=== PATIENT | female | born 1935 | race Caucasian/White ===

== ENCOUNTER 2017-01-11 12:50 | Inpatient (IN) | payer MEDICARE ==
--- NOTE | ~2017-01-11 | EKG ---
PATIENT: FINESSE SWANSON UNIT #: [id number] Ventricular Rate: 44 BPM Atrial Rate: 44 BPM P-R Interval: 184 ms QRS Duration: 74 ms Q-T Interval: 492 ms QTC Calculation(Bezet): 420 ms P [place]: 77 degrees Calculated R [place]: 33 degrees Calculated T [place]: 57 degrees Diagnosis Line: Marked sinus bradycardia Diagnosis Line: Abnormal ECG Diagnosis Line: No previous ECGs available Diagnosis Line: Confirmed by ASHLEY SGIALA MD ([id number]) on 01/11/2017 Diagnosis Line: 10:01:08 PM INTERPRETING MD: ZAKIYA JEAN-BAPTISTE
--- NOTE | ~2017-01-11 | CO ---
Unit #: [id number] #: [id number] Patient: FINESSE SWANSON [id number] [facility]. [place], [place] [address] [id number] I MR#: [id number] NAME: FINESSE SWANSON. ROOM: 322 Age: 81 Sex: F Admission Date: 01/11/2017 : 1935 Attending Physician: Shannon Louis M.D. Primary Care Physician: Martinez Chisholm M.D. CONSULTATION REPORT JOB NOTE: VERIFY MRN. REASON FOR CONSULTATION Bradycardia. HISTORY OF PRESENT ILLNESS This is an 81-year-old white female, who is known to Dr. Johns, who has a history of coronary artery disease where she underwent cardiac catheterization in 11/2016 where she was found to have 60% stenosis in the mid circumflex artery. She was seen in the office and echocardiogram was obtained, which found her to have normal left ventricular systolic function. A 24-hour Holter monitor was warranted and found the patient to have significant bradycardia. Her heart rate was as low as in the 40s. She also had runs of atrial fibrillation. She has been on anticoagulation with Pradaxa and rate controlled with metoprolol and amiodarone. She is admitted with a complaint of abdominal pain and black tarry stools. She had vomiting nonbloody emesis 2 days ago. She has been having lower extremity edema since she was started on amlodipine and was told to take an extra dose of furosemide. The edema has improved. She has experiences palpitations that mostly occurs during the night at 2:00 a.m. She has no palpitations during the day. Again, she is on Pradaxa, which was started 2 weeks ago. She came to the emergency room for evaluation, where she was found to be mildly anemic with a hemoglobin of 9.3. Her blood pressure has been stable. EKG found the patient to have a heart rate of 44 with marked sinus bradycardia. She has no complaints of chest pain. PAST MEDICAL HISTORY 1. 2D echocardiogram on 12/07/2016 shows an ejection fraction of 50% to 55% with [id number] mitral regurgitation and moderate tricuspid regurgitation. Right ventricular systolic pressure 41 mmHg. 2. Cardiac catheterization on 12/14/[address] Tillman at [facility] that reveals left main normal. LAD and right coronary artery normal. Circumflex artery with 60% stenosis in the AV groove with posterior marginal branch normal. Ejection fraction of 55%. 3. Hypertension. 4. Hyperlipidemia. 5. Paroxysmal atrial fibrillation, on anticoagulation with Pradaxa. 6. Diabetes mellitus, type 2. 7. Lung cancer, status post lobectomy. 8. COPD. 9. Active smoker. PAST SURGICAL HISTORY 1. Lobectomy. Unit #: [id number] #: [id number] Patient: FINESSE SWANSON 2. Left hip surgery. 3. Exploratory laparotomy. 4. Cataract extraction. 5. Hysterectomy. SOCIAL HISTORY The patient is retired. She smokes a pack of cigarettes daily. Denies illicit drug or alcohol use. FAMILY HISTORY Positive for heart disease in her father. Mother had a stroke. ALLERGIES Penicillin, sulfa, and statins. Statins causes leg cramping. HOME MEDICATIONS Levothyroxine 50 mcg daily, atorvastatin 10 mg daily, Timoptic one drop OU b.i.d., Mucinex 100 mg b.i.d., aspirin 81 mg daily, Pradaxa 150 mg b.i.d., Catapres 0.2 mg b.i.d., Diovan 320 mg daily, Toprol-XL 50 mg b.i.d., Norvasc 10 mg daily, vitamin B12 1000 mcg three times a week, vitamin C 1000 mg daily, vitamin E 400 units three times a week, Centrum multivitamin one tablet daily, calcium plus D3 one tablet daily, and Imdur 30 mg daily. REVIEW OF SYSTEMS CONSTITUTIONAL: Negative for fever or chills. Reports weakness. HEENT: No headache, hearing or vision changes, or difficulty with swallowing. No dizziness. CARDIOVASCULAR: Has no symptoms of angina. Positive for palpitations. No paroxysmal nocturnal dyspnea or orthopnea. No syncope or near syncope. RESPIRATORY: Negative for dyspnea, cough, or hemoptysis. GASTROINTESTINAL: Positive for abdominal pain, nausea, or vomiting. Reports melenic stools. No hematochezia. Has occasional constipation. EXTREMITIES: Positive for lower extremity edema. PHYSICAL EXAMINATION VITAL SIGNS: Blood pressure 145/82, heart rate 62, temperature 98.5. BMI 24. GENERAL: This is a pleasant well-developed 81-year-old white female, who is in no acute distress. NEUROLOGIC: She is awake, alert, oriented. There are no focal weaknesses. NECK: Trachea is midline. No thyromegaly or lymphadenopathy. No jugular venous distention. HEART: S1 and S2. Heart sounds are normal. No murmurs. No rubs or clicks. Regular rate and rhythm. LUNGS: Clear to auscultation without rales, rhonchi, or wheezing. ABDOMEN: Soft and nontender with bowel sounds are present. EXTREMITIES: Trace leg edema. SKIN: Pale and dry. DIAGNOSTIC STUDIES LABORATORY RESULTS: Glucose 119, BUN 47, creatinine 1.1, sodium 138, potassium 4.2. Pro-time 54.8, INR of 4.9. CK-MB 1.5. Troponin less than 0.05. White count 8.5, hemoglobin 10.0, hematocrit 30.4, platelet count 220. IMAGING STUDIES: CT of the abdomen and pelvis shows no acute findings. Unit #: [id number] #: [id number] Patient: FINESSE SWANSON CARDIOVASCULAR STUDIES: EKG; sinus bradycardia with a rate of 44 beats per minute. IMPRESSION 1. Upper gastrointestinal bleed secondary to chronic anticoagulation with Pradaxa. 2. Systolic hypertension. 3. Sick-sinus syndrome with paroxysmal atrial fibrillation. 4. Nonobstructive coronary artery disease per cardiac catheterization in 11/2016. 5. Preserved left ventricular systolic function with an ejection fraction of 50% to 55%. 6. Hyperlipidemia. 7. Diabetes mellitus, type 2. PLAN 1. Cardiology was consulted for sinus bradycardia. There is no high-grade AV blocks noted. We will stop metoprolol because of bradycardia. 2. Continue amiodarone. 3. As discussed with the patient and family, controlling her systolic blood pressure may be difficult. We will discontinue Diovan and decrease clonidine and amlodipine. 4. The patient has no symptoms of angina. We will continue Imdur. 5. May need permanent pacemaker if palpitations persist. 6. We will follow the patient with you. Thank you for allowing us to assist with this patient's care. Dictated by... Lane Babin A.P.R.N. for Stephanie Siegel/nely TD: 01/11/2017 23:10 JOB #: [id number] Jillian Johns M.D. CONSULTATION REPORT X Lane Babin APRN CONSULTATION REPORT
--- NOTE | ~2017-01-11 | CO ---
Unit #: [id number] #: [id number] Patient: FINESSE SWANSON [id number] [facility]. [address] [place] [id number] I MR#: [id number] NAME: FINESSE SWANSON. ROOM: 322 Age: 81 Sex: F Admission Date: 01/12/2017 : 1935 Attending Physician: Bianka Tnisley M.D. Primary Care Physician: Martinez Chisholm M.D. Consultation Date: 01/12/2017 CONSULTATION REPORT BRIEF SUMMARY The patient is an 81-year-old white female with multiple medical problems, including diabetes mellitus, COPD, atrial fibrillation and hypertension. She has been on Pradaxa and presented complaining of an episode of rectal bleeding as well as melena. According to her, she has had some black stools for the last couple of weeks off and on and until yesterday was having no pain or other symptoms. She did have crampy abdominal pain along with her bleeding yesterday. Hemoglobin is 9.1. Her clotting studies were PT 54.8, INR 4.9 and PTT 68.2. The patient has had some history of rectal bleeding in the past and has had endoscopy, but over 5 to 6 years ago. She has had no other significant symptoms and presently is feeling better. She has multiple medical problems in the past including atrial fibrillation, hypertension, COPD, cancer, thyroid disease, diabetes and chronic degenerative arthritis. She had multiple surgeries including hysterectomy, left hip replacement, left lower lobe lobectomy for cancer, exploratory laparotomy for infection, bilateral cataracts, lithotripsy and surgery for kidney stone. MEDICATIONS She is on Pradaxa, amlodipine, levothyroxine, aspirin, vitamin B12, B3 and calcium, Catapres, Diovan, Toprol, Lasix, hydrochlorothiazide, Zyrtec, melatonin and Symbicort. ALLERGIES She is allergic to penicillin, sulfa, and statins. IMMUNIZATIONS Up to date. TRANSFUSIONS No history of transfusion reaction in the past. FAMILY HISTORY Noncontributory. SOCIAL HISTORY The patient is a , nondrinker. She does smoke approximately half pack of cigarettes per day. REVIEW OF SYSTEMS Twelve-system review has been performed, which is not remarkable except for that noted in the present illness. PHYSICAL EXAMINATION Unit #: [id number] #: [id number] Patient: FINESSE SWANSON VITAL SIGNS: Temperature on admission 98.6, pulse 48, respirations 20, blood pressure 113/47. GENERAL: The patient is a well-developed, thin, 81-year-old white female, in no acute distress. HEENT: Not remarkable. NECK: Supple. CHEST: There is equal bilateral expansion. HEART: Irregular rhythm without murmurs. ABDOMEN: Soft, nontender, benign without palpable mass or organomegaly. No gross abdominal distention. No guarding or rebound. Active bowel sounds present. No evidence of ascites or hernias. EXTREMITIES: Full range of motion without limitation. There is no evidence of peripheral edema. BACK: There is no CVA tenderness. NEUROLOGIC: Grossly intact. IMPRESSION The patient has gastrointestinal bleeding, possibly upper with her history. She is also fully anticoagulated, which suggests reversing her anticoagulation slowly and then going ahead with upper and lower endoscopy. She is okay with this approach and agrees. Dictated by... Reynold Lorenzana Jr. MTrent. ANGELA/nely TD: 01/13/2017 01:28 JOB #: [id number] CONSULTATION REPORT X Reynold Lorenzana MD X CONSULTATION REPORT
--- NOTE | ~2017-01-11 | DS ---
Unit #: [id number] #: [id number] Patient: FINESSE SWANSON [id number] [facility]. [place], [place] [address] [id number] Nemo MR#: [id number] NAME: FINESES SWANSON. ROOM: 322 Age: 82 Sex: F Admission Date: 01/12/2017 : 1935 Discharge Date: 01/15/2017 Attending Physician: Bianka Tinsley M.D. Primary Care Physician: Martinez Chisholm M.D. DISCHARGE SUMMARY REASON FOR ADMISSION GI bleed. HISTORY OF PRESENT ILLNESS/HOSPITAL COURSE The patient is a very pleasant 81-year-old female with underlying history of atrial fibrillation, on chronic anticoagulation with Pradaxa; hypertension; hyperlipidemia; diabetes; hypothyroidism; prior history of lung carcinoma; COPD; who presented to the emergency department for evaluation of above. Please see H and P for complete details. She was admitted with the same initial laboratory studies. I did yield a hemoglobin of 9.3. It was noted secondary to dark tarry stools as well as questionable bright red blood per rectum. We placed consultation to [facility] for endoscopic evaluation. The patient underwent EGD endoscopy, which did reveal mild gastritis. Appropriate biopsies were taken. Colonoscopy showed diverticulosis, but no active disease. There was no active bleeding, which was noted. In regard to her underlying history of sick sinus syndrome, as well as atrial fibrillation and cardiac management, we placed consultation to Dr. Tillman of [facility] saw and evaluated the patient. Today, the patient has been deemed stable for discharge. Her hemoglobin currently stands at 9.2. At time of discharge, we will also be increasing her Synthroid medication as her TSH was greater than 10. Her blood pressure medications have been adjusted. Please see below for complete details. Also noted, the patient's aspirin will be discontinued at the request of Dr. Tillman. Please also note, the patient's Pradaxa has been decreased to 75 mg p.o. b.i.d. The patient asked to discontinue Mucinex as well as vitamin C as both cause gastritis. FOLLOWUP The patient to follow up with PCP in approximately 7 to 10 days for repeat CBC as well as appropriate hospital followup. The patient to follow up Unit #: [id number] #: [id number] Patient: FINESSE SWANSON with Dr. Johns as an outpatient in 4 to 6 weeks. FINAL DISCHARGE DIAGNOSES 1. Gastrointestinal bleed per report with negative endoscopic evaluation. 2. Atrial fibrillation. 3. Chronic anticoagulation. 4. Hypertension. 5. Recent hospital admission secondary to sigmoid colitis with negative colonoscopy in this hospital admission. 6. Diabetes, diet control. 7. Prior history of lung carcinoma, status post surgical resection. 8. Chronic obstructive pulmonary disease with ongoing tobacco abuse. 9. Gastritis. 10. Hypothyroidism. FINAL DISCHARGE MEDICATIONS Amiodarone 200 mg p.o. daily; Pradaxa 75 mg p.o. b.i.d.; Norvasc 5 mg p.o. q.h.s.; Lasix 20 mg p.o. b.i.d.; Lipitor 10 mg p.o. q.h.s.; Catapres 0.1 mg p.o. b.i.d.; hydralazine 25 mg p.o. b.i.d.; Cozaar 25 mg p.o. b.i.d.; Protonix 40 mg p.o. b.i.d.; multivitamin daily; Synthroid 75 mcg p.o. daily dispense as written, no substitute; Imdur 30 mg p.o. daily; vitamin B12 1000 mcg p.o. daily; Symbicort 160/4.5 two puffs b.i.d. DISCHARGE CONDITION Stable. DISCHARGE DISPOSITION Home. Time spent 55 minutes. Dictated by... Stephanie Boggs/nely TD: 01/16/2017 00:00 JOB #: [id number] DISCHARGE SUMMARY X Bianka Tinsley MD X DISCHARGE SUMMARY
--- NOTE | ~2017-01-11 | OR ---
Unit #: [id number] #: [id number] Patient: FINESSE SWANSON [id number] [address] [id number] I MR#: [id number] NAME: FINESSE SWANSON. ROOM: [facility] Date of Procedure: 01/14/2017 Admission Date: 01/12/2017 Surgeon: Guero Garcia M.D. : 1935 Attending Physician: Bianka Tinsley M.D. Primary Care Physician: Martinez Chisholm M.D. OPERATIVE REPORT PREOPERATIVE DIAGNOSIS Anemia. POSTOPERATIVE DIAGNOSES 1. Mild gastritis. 2. Rare sigmoid diverticulum. PROCEDURES PERFORMED 1. Esophagogastroduodenoscopy with biopsy for Helicobacter pylori. 2. Colonoscopy. ANESTHESIA IV sedation. COMPLICATIONS None. INDICATIONS FOR PROCEDURE The patient is an 81-year-old lady with a GI bleed. DESCRIPTION OF PROCEDURE The patient was taken to the operating theater and placed in left lateral decubitus position. IV sedation was initiated. EGD scope was passed under direct vision into the esophagus. Esophagus was grossly normal. Stomach showed mild gastritis mainly at the antrum. A biopsy was taken for H pylori. The duodenum was normal. There was no hiatal hernia. The patient was repositioned. Digital rectal exam was normal. Colonoscope was then passed and navigated to the cecum. The patient had excellent prep. I visualized the entire colon. I saw no evidence of neoplastic lesions. There were some rare diverticula in the sigmoid colon. I saw no evidence of bleeding. She tolerated the procedure well and sent to recovery room in good condition. Dictated by... Stephanie Jacome/nely TD: 01/15/2017 00:42 JOB #: [id number] Unit #: [id number] #: [id number] Patient: FINESSE SWANSON OPERATIVE REPORT X Guero Garcia MD X PROCEDURE OPERATIVE NOTE
--- NOTE | ~2017-01-11 | HP ---
Unit #: [id number] #: [id number] Patient: FINESSE SWANSON [id number] [place], [place] [address] [id number] MR#: [id number] NAME: FINESSE SWANSON. ROOM: Age: 81 Sex: F Admission Date: 01/11/2017 : 1935 Attending Physician: Ed Berg M.D. Primary Care Physician: Martinez Chisholm M.D. HISTORY AND PHYSICAL CHIEF COMPLAINT Gastrointestinal bleed. HISTORY OF PRESENT ILLNESS The patient is an 81-year-old female with a past medical history of atrial fibrillation, chronic anticoagulation with Pradaxa, hypertension, hyperlipidemia, diabetes, lung cancer, and COPD, who presented to the emergency department for evaluation of the above. The patient states that she has been having black stool for possibly as long as a month. This morning she noticed that it was more obviously bloody. She has had intermittent abdominal cramping. She states that she was seen by her primary care physician on January 10, 2016, and was noted to have blood in the urine. She has an appointment to see Dr. Crump in January. She was also seen in the emergency department at [facility] on December 16, 2016, for abdominal pain. She per the patient was told she had a urinary tract infection. Review of [facility] records shows urine culture from December 16, 2016, grew greater than 100,000 E. coli that was resistant to Bactrim and Levaquin. She states that the abdominal pain had resolved until this morning when she did have cramping low abdominal pain. She states that following a bowel movement, the pain has resolved. She denies any fever. She does have shortness of breath at baseline. She has had an occasionally productive cough. She denies any urinary symptoms. She denies lightheadedness. She has been increasingly generally weak. In the emergency department, initial vital signs were notable for a pulse of 48. EKG shows marked sinus bradycardia with a rate of 44 beats per minute. She was noted to be Hemoccult positive per ER documentation. Additionally, hemoglobin is 9.3. INR is 4.9. She was given 5 grams of Praxbind in the emergency department. She is being admitted to [facility] for evaluation and further treatment. PAST MEDICAL HISTORY 1. Admission to [facility] February 10, 2012, for left lower quadrant pain secondary to sigmoid colitis. 2. Atrial fibrillation, on chronic anticoagulation with Pradaxa. 3. Hypertension. 4. Hyperlipidemia. 5. Diabetes. 6. Lung cancer, status post surgical intervention. 7. Chronic obstructive pulmonary disease with continued tobacco abuse. PAST SURGICAL HISTORY Unit #: [id number] #: [id number] Patient: FINESSE SWANSON 1. Hysterectomy. 2. Left hip surgery. 3. Left lower lobectomy. 4. Exploratory laparotomy. 5. Cataract surgery. 6. Lithotripsy. SOCIAL HISTORY The patient denies tobacco or alcohol use. FAMILY HISTORY Hypertension. ALLERGIES PENICILLIN, SULFA, STATINS. HOME MEDICATIONS 1. Pradaxa. 2. Clonidine. 3. Diovan. 4. Metoprolol. 5. Amlodipine. 6. Isosorbide. 7. Levothyroxine. 8. Atorvastatin. 9. Timolol eyedrops. 10. Aspirin. 11. Vitamin C. 12. Vitamin E. 13. Multivitamin. 14. Calcium plus D. 15. Melatonin. Home medications will need to be reviewed and verified. REVIEW OF SYSTEMS A complete review of systems is negative except as indicated in the History of Present Illness. PHYSICAL EXAMINATION VITAL SIGNS: Temperature is 98.6, pulse 48, respirations 20, blood pressure 113/47, and oxygen saturation is 99% on room air. GENERAL: Patient is a female who is awake, alert, and in no acute distress. HEENT: Head is atraumatic. Mucous membranes are moist. NECK: Supple. Trachea is midline. CARDIOVASCULAR: Bradycardic in the 50s. LUNGS: Clear to auscultation bilaterally with no increased work of breathing. ABDOMEN: Soft and nontender with bowel sounds present in all four quadrants. RECTAL: Hemoccult positive per ER documentation. NEUROLOGIC: Patient is awake and alert. She follows commands. PSYCHIATRIC: Mood and affect are normal. Patient is cooperative. SKIN: Generally pale. DIAGNOSTIC STUDIES LABORATORY: Complete blood count notable for hemoglobin and hematocrit of Unit #: [id number] #: [id number] Patient: FINESSE SWANSON 9.3 and 28.7, respectively. INR is 4.9. Comprehensive metabolic panel notable for glucose of 119, BUN and creatinine 47 and 1.1, respectively, alkaline phosphatase 114, total protein 5.5, and albumin is 3.1. CARDIOLOGY: EKG shows marked sinus bradycardia with a rate of 44 beats per minute. ASSESSMENT The patient is an 81-year-old female with: 1. Gastrointestinal bleed. The patient had a colonoscopy on January 26, 2012, that showed segmental colitis of the colon but was otherwise normal. 2. Chronic anticoagulation with Pradaxa. The patient received Praxbind in the emergency department. 3. Abdominal pain that has resolved. 4. Normocytic anemia. The patient's hemoglobin was 13.3 on December 16, 2016. It is 9.3 today. 5. Coagulopathy with an INR of 4.9. 6. Atrial fibrillation. 7. Hypertension. 8. Hyperlipidemia. 9. Diabetes. 10. Lung cancer. 11. Chronic obstructive pulmonary disease with continued tobacco abuse. PLAN 1. Admit for observation to intermediate level. 2. Clear liquid diet for possible endoscopy. 3. Normal saline at 75 mL/hour. 4. Iron studies, B12, and folate. 5. Hemoglobin and hematocrit q.6 hours. 6. Hold Pradaxa. 7. Consult [facility] regarding GI bleed. 8. Serial cardiac enzymes. 9. TSH. 10. Hold Toprol. 11. Monitor heart rate closely. 12. Consult Dr. Tillman, the patient's manager training, regarding bradycardia. 13. Check urinalysis. 14. Hemoglobin A1c. 15. Low-dose sliding scale insulin with Accu-Cheks. 16. SCDs for DVT prophylaxis. 17. Repeat labs in the morning. 18. Additional workup and consultants based on above. 1. Dictated by Stephanie Lambert/caden TD: 01/11/2017 16:12 JOB #: [id number] Unit #: [id number] #: [id number] Patient: FINESSE SWANSON HISTORY AND PHYSICAL X Shannon Louis MD HISTORY AND PHYSICAL
[~2017-01-11 12:50] MED LIST: AMLODIPINE PO; ASACOL400 MG PO; ASPIRIN PO; ASPIRIN81 M1 PO; CALCIUM + D 6001 TA1 PO; CALCIUM + D3; CALCIUM 600 W/1 TAB PO; CALCIUM PO; CATAPRES0.1 MG PO; CENTRUM PO; CIPRO PO; DIOVAN PO; DIOVAN320 MG PO; FLAGYL PO; FLAGYL250 M1 PO; FOSAMAX PO; HYDROCHLOROTHIA25 MG PO; LASIX20 MG PO; LEVAQUIN PO; LEVOTHYROXINE PO; LEVOTHYROXINE50 MCG PO; LORTAB 5/500 TA1 TA1 PO; MELATONIN3 MG PO; MULTI-VITAMIN1 EAC1 PO; MULTIVITAMIN PO; NATURAL VITA400 UNI2 PO; NORVASC PO; OYSTER CALCIUM500 MG PO; SIMVASTATIN20 MG PO; SYMBICORT80 INH; SYNTHROID PO; TIMOLOL EYE DROPS; TIMOPTIC5 ML OU; TOPROL XL50 MG PO; TRIAMTERENE PO; TRIAMTERENE-HC1 EACH PO; TRIAMTERENE/HCTZ PO; VINEGAR PO; VIT E PO; VITAMIN B12; VITAMIN C PO; VITAMIN C1000 M2 PO; VITAMIN E; ZOCOR20 MG PO; ZOFRANODT PO; ZYRTEC10 M1 PO; [UNRECOGNIZED DRUG - OTHER] OU
[2017-01-11 13:24] LABS: BASOPHIL# 0.1 X10e3 (0-0.3); BASOPHIL% 0.8 % (0-2.5); EOSINOPHIL# 0.2 X10e3 (0-0.7); EOSINOPHIL% 2.1 % (0.0-7.0); HEMATOCRIT 28.7 % (35.0-45.0); HEMOGLOBIN 9.3 gm/dL (12.0-16.0); LYMPHOCYTE# 0.9 X10e3 (1.0-3.5); MEAN CELL VOLUME 88.3 FL (83-96); MEAN CORPUSCULAR HEMOGLOBIN 28.5 PG (28-34); MEAN CORPUSCULAR HGB CONC 32.3 g/dL (30-36); MEAN PLATELET VOLUME 9.6 FL (6.5-11.5); MONOCYTE# 0.7 X10e3 (0-1.0); MONOCYTE% 8.1 % (3.0-12.0); NEUTROPHIL# 6.6 X10e3 (1.5-7.1); PLATELET COUNT 220 X10e3 (140-420); RED BLOOD COUNT 3.25 X10e (3.90-5.30); RED CELL DISTRIBUTION WIDTH 14.5 % (11.0-15.5); WHITE BLOOD COUNT 8.5 X10e3 (4.0-10.5)
[2017-01-11 13:45] LABS: DIFF IND NO
[2017-01-11 13:46] LABS: PROTHROMBIN TIME (PATIENT) 54.8 SECONDS (9.6-11.5)
[2017-01-11 13:48] LABS: ALBUMIN SERUM 3.1 g/dL (3.5-5.0); BILIRUBIN, DIRECT 0.1 mg/dL (0.0-0.2); BILIRUBIN,INDIRECT 0.5 mg/dL (0.0-0.9); BILIRUBIN,TOTAL 0.6 mg/dL (0.2-2.0); BUN/CREATININE RATIO 42.72; CALCIUM SERUM 8.8 mg/dL (8.4-10.2); CREATININE SERUM 1.1 mg/dL (0.6-1.4); GLOM FILT RATE Estimated 50.7 mL/min (>60); POTASSIUM 4.2 mmol/L (3.5-5.1); PROTEIN TOTAL SERUM 5.5 g/dL (6.0-8.3)
[2017-01-11 13:49] LABS: INR 4.9; PARTIAL THROMBOPLASTIN TIME 68.2 SECONDS (23.5-31.3)
[2017-01-11] MEDS ORDERED: PRADAXA150 MG PO (16:01)
[2017-01-11] MEDS ORDERED: CATAPRES-TTS-20.2 MG PO (16:02)
[2017-01-11] MEDS ORDERED: DIOVAN320 MG PO (16:03)
[2017-01-11] MEDS ORDERED: TOPROL XL50 MG PO (16:04)
[2017-01-11] MEDS ORDERED: NORVASC10 MG PO (16:05)
[2017-01-11] MEDS ORDERED: LEVOTHYROXINE50 MC1 PO (16:06)
[2017-01-11] MEDS ORDERED: ATORVASTATIN CA10 MG PO (16:16)
[2017-01-11] MEDS ORDERED: TIMOPTIC5 ML OU (16:17)
[2017-01-11] MEDS ORDERED: MUCINEX100 MG/BOX PO (16:18)
[2017-01-11] MEDS ORDERED: ASPIRIN81 MG PO (16:18)
[2017-01-11] MEDS ORDERED: B-121000 MC3 PO (16:20)
[2017-01-11] MEDS ORDERED: VITAMIN C1000 M1 PO (16:21)
[2017-01-11] MEDS ORDERED: VITAMIN E400 UNI2 PO (16:24)
[2017-01-11] MEDS ORDERED: CENTRUM PO (16:25)
[2017-01-11] MEDS ORDERED: CALCIUM + D3 E1 EACH PO (16:26)
[2017-01-11 16:59] LABS: FERRITIN 21 ng/mL (11-307)
[2017-01-11 17:02] LABS: FOLATE (FOLIC ACID) >23.6 ng/mL (>5.8)
[2017-01-11 17:07] LABS: IRON SERUM 55 ug/dL (28-170); TOTAL IRON BINDING CAPACITY 279 ug/dL (269-535); TRANSFERRIN 199 mg/dL (192-382); TRANSFERRIN SATURATION 20 % (20-50)
[2017-01-11 17:11] LABS: URINE APPEARANCE CLEAR; URINE BILIRUBIN NEG (NEG); URINE BLOOD NEG (NEG); URINE COLOR YELLOW; URINE GLUCOSE NEG (NEG); URINE KETONE NEG (NEG); URINE LEUKOCYTE ESTERASE TRACE (NEG); URINE NITRATE NEG (NEG); URINE PROTEIN 1+ (NEG); URINE SPECIFIC GRAVITY 1.013 (1.003-1.035); URINE UROBILINOGEN 0.2 MG/DL (NEG)
[2017-01-11 17:12] LABS: HEMATOCRIT 30.4 % (35.0-45.0)
[2017-01-11 17:13] LABS: URBCS1 AUWI 0-2 /[HPF] (0-2); URINE BACTERIA AUWI NEG (NEGATIVE); URINE SQUAMOUS EPITHELIAL CELL NONE SEEN /[HPF]
[2017-01-11] MEDS ORDERED: IMDUR-ER30 M1 PO (17:31)
[2017-01-11 17:38] LABS: CK TOTAL 47 IU/L (26-140)
[2017-01-11 22:25] LABS: HEMATOCRIT 29.2 % (35.0-45.0); HEMOGLOBIN 9.5 gm/dL (12.0-16.0)
[2017-01-11 22:44] LABS: CK TOTAL 54 IU/L (26-140)
[2017-01-12 05:09] LABS: HEMATOCRIT 27.7 % (35.0-45.0); HEMOGLOBIN 9.1 gm/dL (12.0-16.0); MEAN CELL VOLUME 87.7 FL (83-96); MEAN CORPUSCULAR HEMOGLOBIN 28.8 PG (28-34); MEAN CORPUSCULAR HGB CONC 32.8 g/dL (30-36); MEAN PLATELET VOLUME 9.5 FL (6.5-11.5); RED BLOOD COUNT 3.16 X10e (3.90-5.30); RED CELL DISTRIBUTION WIDTH 14.2 % (11.0-15.5); WHITE BLOOD COUNT 6.6 X10e3 (4.0-10.5)
[2017-01-12 05:32] LABS: INR 1.2
[2017-01-12 06:06] LABS: PROTHROMBIN TIME (PATIENT) 12.8 SECONDS (9.6-11.5)
[2017-01-12 06:08] LABS: ALKALINE PHOSPHATASE 97 U/L (32-92); ALT (SGPT) 20 U/L (10-40); AST (SGOT) 17 U/L (10-42); BILIRUBIN,TOTAL 0.5 mg/dL (0.2-2.0); BLOOD UREA NITROGEN 31 mg/dL (9-23); BUN/CREATININE RATIO 34.44; CALCIUM SERUM 8.7 mg/dL (8.4-10.2); CARBON DIOXIDE 27 mmol/L (22-31); CHLORIDE 110 mmol/L (100-111); CREATININE SERUM 0.9 mg/dL (0.6-1.4); GLOM FILT RATE Estimated ABOVE60 mL/min (>60); GLUCOSE FASTING 94 mg/dL (70-110); POTASSIUM 3.7 mmol/L (3.5-5.1); PROTEIN TOTAL SERUM 5.3 g/dL (6.0-8.3); SODIUM 141 mmol/L (135-145)
[2017-01-12 08:18] LABS: CK TOTAL 49 IU/L (26-140)
[2017-01-12 11:16] LABS: HEMATOCRIT 26.8 % (35.0-45.0); HEMOGLOBIN 8.8 gm/dL (12.0-16.0)
[2017-01-12 15:20] LABS: FREE T3 2.4 pg/mL (2.5-3.9)
[2017-01-12 15:21] LABS: FREE THYROXIN (T4) 0.96 ng/dL (0.58-1.64)
[2017-01-12 20:56] LABS: HEMATOCRIT 31.9 % (35.0-45.0); HEMOGLOBIN 10.5 gm/dL (12.0-16.0)
[2017-01-13 02:29] LABS: HEMATOCRIT 31.3 % (35.0-45.0); HEMOGLOBIN 10.4 gm/dL (12.0-16.0); MEAN CELL VOLUME 87.6 FL (83-96); MEAN CORPUSCULAR HGB CONC 33.1 g/dL (30-36); MEAN PLATELET VOLUME 9.4 FL (6.5-11.5); RED BLOOD COUNT 3.58 X10e (3.90-5.30); RED CELL DISTRIBUTION WIDTH 14.7 % (11.0-15.5); WHITE BLOOD COUNT 5.6 X10e3 (4.0-10.5)
[2017-01-13 02:41] LABS: INR 1.2; PARTIAL THROMBOPLASTIN TIME 34.3 SECONDS (23.5-31.3); PROTHROMBIN TIME (PATIENT) 12.8 SECONDS (9.6-11.5)
[2017-01-13 03:12] LABS: BLOOD UREA NITROGEN 24 mg/dL (9-23); BUN/CREATININE RATIO 26.66; CALCIUM SERUM 9.3 mg/dL (8.4-10.2); CARBON DIOXIDE 25 mmol/L (22-31); CHLORIDE 105 mmol/L (100-111); CREATININE SERUM 0.9 mg/dL (0.6-1.4); GLOM FILT RATE Estimated ABOVE60 mL/min (>60); GLUCOSE FASTING 184 mg/dL (70-110); MAGNESIUM 1.9 mg/dL (1.6-3.0); POTASSIUM 3.8 mmol/L (3.5-5.1); SODIUM 139 mmol/L (135-145)
[2017-01-13 08:33] LABS: HEMATOCRIT 31.4 % (35.0-45.0); HEMOGLOBIN 10.4 gm/dL (12.0-16.0)
[2017-01-13 16:49] LABS: HEMATOCRIT 31.9 % (35.0-45.0); HEMOGLOBIN 10.3 gm/dL (12.0-16.0)
[2017-01-14 01:32] LABS: HEMATOCRIT 26.8 % (35.0-45.0); HEMOGLOBIN 8.6 gm/dL (12.0-16.0); MEAN CELL VOLUME 87.4 FL (83-96); MEAN CORPUSCULAR HEMOGLOBIN 28.1 PG (28-34); MEAN CORPUSCULAR HGB CONC 32.1 g/dL (30-36); RED BLOOD COUNT 3.07 X10e (3.90-5.30); RED CELL DISTRIBUTION WIDTH 14.9 % (11.0-15.5)
[2017-01-14 01:37] LABS: WHITE BLOOD COUNT 13.6 X10e3 (4.0-10.5)
[2017-01-14 02:04] LABS: BLOOD UREA NITROGEN 14 mg/dL (9-23); CALCIUM SERUM 8.3 mg/dL (8.4-10.2); CARBON DIOXIDE 26 mmol/L (22-31); CHLORIDE 102 mmol/L (100-111); CREATININE SERUM 0.7 mg/dL (0.6-1.4); GLOM FILT RATE Estimated ABOVE60 mL/min (>60); GLUCOSE FASTING 131 mg/dL (70-110); MAGNESIUM 1.8 mg/dL (1.6-3.0); SODIUM 137 mmol/L (135-145)
[2017-01-14 02:10] LABS: POTASSIUM 2.7 mmol/L (3.5-5.1)
[2017-01-14 08:29] LABS: HEMATOCRIT 29.3 % (35.0-45.0); HEMOGLOBIN 9.6 gm/dL (12.0-16.0)
[2017-01-14 16:00] LABS: MAGNESIUM 1.8 mg/dL (1.6-3.0); POTASSIUM 3.9 mmol/L (3.5-5.1)
[2017-01-15 05:56] LABS: HEMATOCRIT 28.4 % (35.0-45.0); HEMOGLOBIN 9.2 gm/dL (12.0-16.0); MEAN CELL VOLUME 88.5 FL (83-96); MEAN CORPUSCULAR HEMOGLOBIN 28.6 PG (28-34); MEAN CORPUSCULAR HGB CONC 32.3 g/dL (30-36); MEAN PLATELET VOLUME 9.3 FL (6.5-11.5); RED BLOOD COUNT 3.21 X10e (3.90-5.30); RED CELL DISTRIBUTION WIDTH 14.5 % (11.0-15.5); WHITE BLOOD COUNT 11.2 X10e3 (4.0-10.5)
[2017-01-15 06:34] LABS: BLOOD UREA NITROGEN 20 mg/dL (9-23); BUN/CREATININE RATIO 22.22; CALCIUM SERUM 8.8 mg/dL (8.4-10.2); CARBON DIOXIDE 31 mmol/L (22-31); CHLORIDE 106 mmol/L (100-111); CREATININE SERUM 0.9 mg/dL (0.6-1.4); GLOM FILT RATE Estimated ABOVE60 mL/min (>60); GLUCOSE FASTING 118 mg/dL (70-110); POTASSIUM 3.5 mmol/L (3.5-5.1); SODIUM 142 mmol/L (135-145)
[2017-01-15] MEDS ORDERED: NORVASC PO (10:36)
[2017-01-15] MEDS ORDERED: AMIODARONE PO (10:37)
[2017-01-15] MEDS ORDERED: PROTONIX (10:41)
[2017-01-15] MEDS ORDERED: SYMBICORT INH (10:43)
[2017-01-15] MEDS ORDERED: ALBUTEROL MININEB NEB (10:44)
[2017-01-15] MEDS ORDERED: HYDRALAZINE HCL25 MG PO (10:46)
[2017-01-15] MEDS ORDERED: LASIX20 MG PO (10:46)
[2017-01-15] MEDS ORDERED: COZAAR25 MG PO (10:47)
== END 2017-01-15 14:09 | disposition home or self-care (01) | DRG 378 ==
LOC: CED 12:50 → CEDOF 13:25 → C3A PCU 01-12 14:30
PROVIDERS: Emergency Medicine; Family Medicine; Nurse Practitioner; Physician Assistant Medical; Surgery
PROC: 0DB68ZX Excision of Stomach, Via Natural or Artificial Opening Endoscopic, Diagnostic (ICD-10-PCS; principal; 2017-01-14 07:30)
PROC: 0DJD8ZZ Inspection of Lower Intestinal Tract, Via Natural or Artificial Opening Endoscopic (ICD-10-PCS; 2017-01-14 07:30)
DX: K92.1 Melena (principal); D62 Acute posthemorrhagic anemia; E11.8 Type 2 diabetes mellitus with unspecified complications; I49.5 Sick sinus syndrome; J44.1 Chronic obstructive pulmonary disease with (acute) exacerbation; Z79.01 Long term (current) use of anticoagulants; I10 Essential (primary) hypertension; E78.5 Hyperlipidemia, unspecified; Z85.118 Personal history of other malignant neoplasm of bronchus and lung; F17.210 Nicotine dependence, cigarettes, uncomplicated; Z90.710 Acquired absence of both cervix and uterus; Z98.49 Cataract extraction status, unspecified eye; Z88.0 Allergy status to penicillin; Z88.2 Allergy status to sulfonamides; Z79.82 Long term (current) use of aspirin; R10.9 Unspecified abdominal pain; I25.10 Atherosclerotic heart disease of native coronary artery without angina pectoris; I48.0 Paroxysmal atrial fibrillation; Z96.642 Presence of left artificial hip joint; K29.70 Gastritis, unspecified, without bleeding; K57.30 Diverticulosis of large intestine without perforation or abscess without bleeding; I08.1 Rheumatic disorders of both mitral and tricuspid valves
CPT/HCPCS: 36415; 80048; 80053; 80076; 81003; 82550; 82607; 82728; 82746; 82947; 83036; 83540; 83550; 83735; 84132; 84439; 84443; 84481; 84484; 85014; 85018; 85025; 85027; 85610; 85730; 86850; 86870; 86880; 86885; 86900; 86901; 86905; 86922; 87077; 87086; 93005; 94640; 94760; 97162; 97165; 99291; G8978-GO; G8978-GP; G8979-GO; G8979-GP; G8980-GO; G8980-GP; G8987-GO; G8988-GO; G8989-GO; J1815; J2920